=== PATIENT | female | born 1980 | race African-American/Black ===

== ENCOUNTER 2016-09-15 20:57 | Observation (INO) | payer OTHER ==
[~2016-09-15] VITALS: Ht 149.9 cm; Wt 40.0 kg
[~2016-09-15 20:57] MED LIST: CIPR500T4 PO; FLAG500T PO; NAPR-576 PO; PERC5TAB12 PO; PROT40TA PO; TRAM50 PO; ZOFR4TAB3 SL
[2016-09-15 21:00] VITALS: BP 128/81; PULSE 98; RESP 10; RESP 15; TEMP 98; O2SAT 97
[2016-09-15] MEDS ORDERED: SODIUM CHLOR 0.9% 1000 ML INJ 1,000 ML IV SCH (23:04)
--- NOTE | 2016-09-15 23:07 | PD ---
HPI Chief Complaint: Facial Pain or Swelling Time Seen by Provider: 23:01 Travel History International Travel<30 days: No Contact w/Intl Traveler<30days: No Traveled to known affect area: No History of Present Illness HPI 36-year-old female here for evaluation of severe left-sided jaw pain. Patient reports that the pain started 3 days ago and has been progressively getting worse. She is unable to open or close her mouth and states that she has had little to eat or drink in the last 3 days because of this. She denies trauma. No fevers or chills. She is able to swallow and tolerate her secretions. She denies IVDU. PFSH Past Medical History Autoimmune Disease: No Blood Disorders: No Anxiety: No Depression: No Cancer: No Cardiovascular Problems: No Chemotherapy: No Diabetes: No Diminished Hearing: No Endocrine: No Gastrointestinal Disorders: Yes (CHRONIC ABD PAIN) Genitourinary: No Hepatitis: No Hypertension: Yes Immune Disorder: No Implanted Vascular Access Dvce: No Musculoskeletal: No Neurologic: No Psychiatric: No Reproductive: Yes (HEAVY VAG BLEEDING AND CRAMPING WITH HER PERIOD) Respiratory: No Immunizations Current: Yes Radiation Therapy: No Thyroid Disease: No ?: Not LMP: 09/04/16 : 1 Para: 1 Miscarriage: 0 : 0 Past Surgical History Abdominal Surgery: No AICD: No Arteriovenous Shunt: No Cardiac Surgery: No Section: Yes (X1) Ear Surgery: No Endocrine Surgery: No Eye Surgery: No Genitourinary Surgery: No Gynecologic Surgery: No Insulin Pump: No Joint Replacement: No Neurologic Surgery: No Oral Surgery: No Pacemaker: No Thoracic Surgery: No Other Surgery: No Social History Alcohol Use: No Tobacco Use: Yes (1 PPD) Substance Use: Yes (marijuana) Allergies-Medications (Allergen,Severity, Reaction): Coded Allergies: No Known Allergies (Verified , 09/15/16) Reported Meds & Prescriptions Reported Meds & Active Scripts Active No Active Prescriptions or Reported Medications Review of Systems Except as stated in HPI: all other systems reviewed are Neg Physical Exam Narrative GENERAL: Well-developed, well-nourished, awake, alert, no acute distress. SKIN: Focused skin assessment warm/dry. No rash. HEAD: Normocephalic. Moderate left-sided facial swelling with induration. Mild left submandibular swelling. EYES: Pupils equal and round. No scleral icterus. No injection or drainage. ENT: No nasal bleeding or discharge. Mucous membranes pink and moist. One finger trismus. Because of this it is difficult to completely examine the patient's mouth. NECK: Trachea midline. No JVD. No nuchal rigidity. CARDIOVASCULAR: Regular rate and rhythm. RESPIRATORY: No accessory muscle use. Clear to auscultation. Breath sounds equal bilaterally. GASTROINTESTINAL: Abdomen soft, non-tender, nondistended. MUSCULOSKELETAL: No obvious deformities. No clubbing. No cyanosis. No edema. NEUROLOGICAL: Awake and alert. No obvious cranial nerve deficits. Motor grossly within normal limits. Normal speech. PSYCHIATRIC: Appropriate mood and affect; insight and judgment normal. Data Data Last Documented VS Vital Signs Date Time Temp Pulse Resp B/P Pulse Ox O2 Delivery O2 Flow Rate FiO2 09/15/16 23:20 98 Room Air 09/15/16 21:00 98.0 98 15 128/81 Orders Complete Blood Count With Diff (09/15/16 23:04) Comprehensive Metabolic Panel (09/15/16 23:04) Prothrombin Time / Inr (Pt) (09/15/16 23:04) Act Partial Throm Time (Ptt) (09/15/16 23:04) Iv Access Insert/Monitor (09/15/16 23:04) Ecg Monitoring (09/15/16 23:04) Oximetry (09/15/16 23:04) Morphine Inj (Morphine Inj) (09/15/16 23:15) Ondansetron Inj (Zofran Inj) (09/15/16 23:15) Sodium Chlor 0.9% 1000 Ml Inj (Ns 1000 M (09/15/16 23:04) Sodium Chloride 0.9% Flush (Ns Flush) (09/15/16 23:15) Beta Hcg (Quant/Titer) (09/15/16 23:04) Ampicillin-Sulbactam Inj (Unasyn Inj) (09/15/16 23:15) Ct Facial Bones W Iv Contrast (09/16/16 ) Iohexol 350 Inj (Omnipaque 350 Inj) (09/16/16 01:04) Morphine Inj (Morphine Inj) (09/16/16 01:45) Ondansetron Inj (Zofran Inj) (09/16/16 01:45) Ketorolac Inj (Toradol Inj) (09/16/16 02:00) Clindamycin Inj (Cleocin Inj) (09/16/16 02:00) Labs Laboratory Tests Test 09/15/16 23:25 White Blood Count 11.4 TH/MM3 Red Blood Count 4.24 MIL/MM3 Hemoglobin 12.3 GM/DL Hematocrit 37.3 % Mean Corpuscular Volume 87.9 FL Mean Corpuscular Hemoglobin 29.0 PG Mean Corpuscular Hemoglobin 33.0 % Concent Red Cell Distribution Width 14.1 % Platelet Count 209 TH/MM3 Mean Platelet Volume 8.7 FL Neutrophils (%) (Auto) 89.3 % Lymphocytes (%) (Auto) 5.6 % Monocytes (%) (Auto) 4.9 % Eosinophils (%) (Auto) 0.0 % Basophils (%) (Auto) 0.2 % Neutrophils # (Auto) 10.1 TH/MM3 Lymphocytes # (Auto) 0.6 TH/MM3 Monocytes # (Auto) 0.6 TH/MM3 Eosinophils # (Auto) 0.0 TH/MM3 Basophils # (Auto) 0.0 TH/MM3 CBC Comment DIFF FINAL Differential Comment Prothrombin Time 11.1 SEC Prothromb Time International 1.0 RATIO Ratio Activated Partial 29.2 SEC Thromboplast Time Sodium Level 140 MEQ/L Potassium Level 3.3 MEQ/L Chloride Level 103 MEQ/L Carbon Dioxide Level 26.3 MEQ/L Anion Gap 11 MEQ/L Blood Urea Nitrogen 8 MG/DL Creatinine 0.82 MG/DL Estimat Glomerular Filtration 97 ML/MIN Rate Random Glucose 103 MG/DL Calcium Level 9.6 MG/DL Total Bilirubin 0.5 MG/DL Aspartate Amino Transf 12 U/L (AST/SGOT) Alanine Aminotransferase 18 U/L (ALT/SGPT) Alkaline Phosphatase 73 U/L Total Protein 8.4 GM/DL Albumin 3.9 GM/DL Human Chorionic Gonadotropin, LESS THAN 1 Quant MIU/ML MDM Medical Decision Making Medical Screen Exam Complete: Yes Emergency Medical Condition: Yes Medical Record Reviewed: Yes Differential Diagnosis Dental abscess, Cristian angina, Narrative Course Initial vital signs show heart rate 98, blood pressure 128/81, pulse ox 97% on room air, oral temp of 98F. CBC shows WBC 11.4, hemoglobin 12.3, hematocrit 37.3, platelets 209, neutrophils 89.3%. CMP is remarkable for potassium 3.3, otherwise unremarkable. Beta hCG is negative. CT facial bones with contrast: CONCLUSION: 1. Periapical abscess of the left molar of the left mandible with adjacent small fluid collection/abscess measuring 2.1 x 1.1 cm. Patient has one finger trismus on the barely being able to open or close her mouth because of the pain. There is no drooling or stridor. She is able to tolerate her secretions. She is still complaining of pain despite receiving 2 doses of pain medication. She also reports that she has had little to eat or drink because she is unable to open her mouth because of the pain. Because of this she'll be admitted for IV antibiotics and OMFS evaluation. Case discussed with on-call OMFS Dr. Rush who agrees with plan for admission for IV antibiotics. He will see the patient in consultation. Case discussed with hospitalist Dr. Salgado who will admit the patient to her service. Diagnosis Primary Impression: Dental abscess Additional Impression: Pain, dental Admitting Information Admitting Physician Requests: Observation Scripts No Active Prescriptions or Reported Meds Kurt Pierce MD Sep 15, 2016 23:07
[2016-09-15] MEDS ORDERED: MORPHINE SULFATE 4 MG/ML INJ IV PUSH ONE (23:15)
[2016-09-15] MEDS ORDERED: ONDANSETRON HCL 4 MG/2 ML VIAL IVP ONE (23:15)
[2016-09-15] MEDS ORDERED: AMPICILLIN-SULBACTAM INJ 3 GM in SODIUM CHLORIDE 0.9% INJ 100 ML IV ONE (23:15)
[2016-09-15] MEDS ORDERED: SODIUM CHLORIDE 0.9% FLUSH 10 ML FLUSH IV FLUSH PRN (23:15)
[2016-09-15 23:20] VITALS: O2SAT 98
[2016-09-15 23:40] LABS: AUTOMATED NEUTROPHIL # 10.1 TH/MM3 (1.8-7.7); BASOPHIL % 0.2 % (0.0-2.0); HEMATOCRIT 37.3 % (35.0-46.0); HEMO FLAGS DIFF FINAL; LYMPH % 5.6 % (9.0-44.0); LYMPHOCYTE # 0.6 TH/MM3 (1.0-4.8); MEAN CELL VOLUME 87.9 FL (80.0-100.0); MONO % 4.9 % (0.0-8.0); NEUT % 89.3 % (16.0-70.0); PLATELET COUNT 209 TH/MM3 (150-450); RED BLOOD COUNT 4.24 MIL/MM3 (4.00-5.30); RED CELL DISTRIBUTION WIDTH 14.1 % (11.6-17.2); WHITE BLOOD COUNT 11.4 TH/MM3 (4.0-11.0)
[2016-09-15 23:47] LABS: APTT (PATIENT) 29.2 SEC (24.3-30.1); PROTHROMBIN TIME - PATIENT 11.1 SEC (9.8-11.6)
[2016-09-16] VITALS (9 sets, daily range): BP systolic 87–119; BP diastolic 60–80; PULSE 63–99; RESP 18–20; TEMP 96.6–98.7; O2SAT 97–99
[2016-09-16 00:03] LABS: ALT (GPT) 18 U/L (10-53); ANION GAP 11 MEQ/L (5-15); AST (GOT) 12 U/L (15-37); BICARBONATE 26.3 MEQ/L (21.0-32.0); BLOOD UREA NITROGEN 8 MG/DL (7-18); CHLORIDE 103 MEQ/L (98-107); GLOMERULAR FILTRATION RATE 97 ML/MIN (>89); POTASSIUM 3.3 MEQ/L (3.5-5.1); SODIUM (NA) 140 MEQ/L (136-145)
[2016-09-16 00:07] LABS: ALKALINE PHOSPHATASE 73 U/L (45-117); BETA HCG QUANT LESS THAN 1 MIU/ML (0-5); TOTAL BILIRUBIN ADULT 0.5 MG/DL (0.2-1.0)
[2016-09-16] MEDS ORDERED: IOHEXOL 350 MG/ML 10 ML VIAL (for RAD DIAG) IV ONE (01:04)
--- NOTE | 2016-09-16 01:41 | RADRPT ---
EXAM DATE/TIME: 09/16/2016 01:00 [facility] COMPARISON: No previous studies available for comparison. INDICATIONS : Left mandible pain and swelling for three days. IV CONTRAST: 72 cc Omnipaque 350 (iohexol) IV RADIATION DOSE: 29.26 CTDIvol (mGy) MEDICAL HISTORY : Hypertension. SURGICAL HISTORY : section. ENCOUNTER: Initial ACUITY: 3 days PAIN SCALE: 10/10 LOCATION: Left facial TECHNIQUE: Volumetric scanning of the facial bones was performed. Using automated exposure control and adjustme nt of the mA and/or kV according to patient size, radiation dose was kept as low as reasonably achiev able to obtain optimal diagnostic quality images. FINDINGS: ORBITS: The orbital and infraorbital osseous structures are intact. The retroconal structures have a normal configuration. No radiopaque foreign bodies are seen. NASAL BONE: The nasal bone and maxillary spine are intact ZYGOMATIC ARCHES: Symmetric without evidence of fracture. SINUSES: The maxillary, ethmoid and frontal sinuses are intact. No air-fluid levels seen. NASAL CAVITY: The nasal septum is intact and midline. The lacrimal ducts are intact. SOFT TISSUES: No radiopaque foreign bodies seen. Left-sided facial soft-tissue swelling is seen. There is a small a bscess in the soft tissues adjacent to the left mandible measuring 2.1 x 1.1 cm. This appears to be c aused by periapical abscess from adjacent molar. INTRACRANIAL: No intracranial air seen. CRIBIFORM PLATE: Grossly intact. CONCLUSION: 1. Periapical abscess of the left molar of the left mandible with adjacent small fluid collection/abs cess measuring 2.1 x 1.1 cm. Satnam Meza MD on September 16, 2016 at 1:34 Board Certified Radiologist. This report was verified electronically.
[2016-09-16] MEDS ORDERED: MORPHINE SULFATE 4 MG/ML INJ IV PUSH ONE (01:45)
[2016-09-16] MEDS ORDERED: ONDANSETRON HCL 4 MG/2 ML VIAL IV PUSH ONE ×2 (01:45→12:00)
[2016-09-16] MEDS ORDERED: CLINDAMYCIN INJ 600 MG in SODIUM CHLORIDE 0.9% INJ 100 ML IV ONE (02:00)
[2016-09-16] MEDS ORDERED: KETOROLAC TROMETHAMINE 30 MG/ML (IVP) VIAL IV PUSH ONE (02:00)
[2016-09-16] MEDS ORDERED: NALOXONE HCL 0.4 MG/ML AMP IV PRN (02:30)
[2016-09-16] MEDS ORDERED: ONDANSETRON HCL 4 MG/2 ML VIAL IVP PRN (02:30)
[2016-09-16] MEDS ORDERED: HYDROmorphone HCL PF 1 MG/ML VIAL IV PUSH PRN (02:45)
[2016-09-16] MEDS: SODIUM CHLOR 0.9% 1000 ML INJ 1,000 ML IV SCH ×5 (02:55→22:30)
[2016-09-16] MEDS ORDERED: POTASSIUM CHLORIDE 20 MEQ CONTROLLED RELEASE TAB PO ONE (08:00)
[2016-09-16] MEDS: CLINDAMYCIN INJ 900 MG in SODIUM CHLORIDE 0.9% INJ 100 ML IV SCH ×3 (08:11→21:40)
--- NOTE | 2016-09-16 08:16 | MB ---
cc: JIN LIZ DDS DATE OF CONSULTATION 09/16/2016 DATE OF 1980 CHIEF COMPLAINT "My face is swollen and my teeth hurt." HISTORY OF PRESENT ILLNESS Ms. Rosario is a 36-year-old female who presented to the [place] emergency department with severe left sided jaw pain. The patient states that her pain started approximately three days ago and has been getting progressively worse. The patient states that she has not had trouble with any teeth prior to this recent occurrence, however at this time, she states that she is unable to open her mouth and she has had little to eat or drink in the last three days. The patient denies any trauma. The patient denies any fever, chills, nausea or vomiting. The patient was seen this morning in bed complaining of left sided jaw pain. The patient is alert and oriented x3 and the patient had a friend at bedside. PAST MEDICAL HISTORY The patient is significant for: 1. Chronic abdominal pain 2. Heavy vaginal bleeding PAST SURGICAL HISTORY SOCIAL HISTORY Denies any alcohol use. She smokes approximately one pack per day and is positive for marijuana use. ALLERGIES NO KNOWN DRUG ALLERGIES. PHYSICAL EXAMINATION GENERAL: This is a well-developed, well-nourished female awake and alert in no acute distress. SKIN: Warm and dry with no rashes. HEAD: Normocephalic and atraumatic. EYES: Pupils equal, round and reactive to light and accommodation. Extraocular muscles are intact. No scleral icterus. NOSE: No nasal bleeding or discharge. EARS: Her hearing is intact. MAXILLOFACIAL: The patient is noted to have moderate left-sided facial swelling on the lower third of the face. Maximal incisal opening is approximately 15 mm which is approximately the width of one fingerbreadth. The patient is noted to have some vestibular swelling associated with what appears to be tooth #18 and impacted tooth number 17. The floor of the mouth is not swollen and her airway is patent. Oral hygiene is fair. NECK: Trachea is midline with no JVD. A maxillofacial CT was completed and the conclusion report states that the patient has a periapical abscess of the left molar of the left mandible with adjacent small fluid collection abscess measuring approximately 2.1 x 1.1 cm. ASSESSMENT This is a 36-year-old female with a multi-fascial space infection (masseter space and buccal abscess) secondary to tooth #17. PLAN The patient is to be kept n.p.o. after breakfast for approximately eight hours. The patient is then going to be taken to the operating room for incision and drainage of multiple fascial space abscess with extraction of any necessary teeth. Recommend clindamycin 900 mg every 8 hours, pain management and steroid therapy. JEB Lambert/JOYCE /7:38 AM /8:08 AM
--- NOTE | 2016-09-16 08:18 | HHI.HP ---
. HPI Service [facility] Primary Care Physician No Primary Care Physician Admission Diagnosis dental abscess, dental pain Diagnoses: (1) Dental abscess Chief Complaint: Left sided jaw pain x 3 days Travel History International Travel<30 Days: No Contact w/Intl Traveler <30 Da: No Traveled to Known Affected Are: No History of Present Illness Ms. Rosario is a 36-year-old female who presented to the ED with complaints of severe left sided jaw pain for the past three days, unsure of what caused the pain to occur. Denies any associated fever and chills. Denies any inability to swallow, although has had limited amount of PO intake the last three days due to inability to open mouth. Denies any radiation of pain, only localized to left jaw. On a pain scale of 1-10, patient states that her pain has been a 10. Patient states that sister had given her a Lortab which had made her vomit and left without any pain relief. At one point she used a heating pad, making it worse. Maxillofacial CT resulted showing periapical abscess of the left molar of the left mandible with adjacent small fluid collection/abscess measuring 2.1x1.1cm. Review of Systems Except as stated in HPI: all other systems reviewed are Neg Past Family Social History Past Medical History Hypertension Chronic abdominal pain Heavy vaginal bleeding Past Surgical History , Reported Medications Reported Meds & Active Scripts Active No Active Prescriptions or Reported Medications Allergies: Coded Allergies: No Known Allergies (Unverified , 09/16/16) Active Ordered Medications Current Medications Medications (Trade) Dose Ordered Sig/Edna Route Start Time Stop Time Status Last Admin (NS 1000 ml Inj) 1,000 ml @ 100 mls/hr Q10H IV 09/16/16 02:30 09/16/16 02:55 (NS Flush) 2 ml UNSCH PRN IV FLUSH 09/16/16 02:30 (NS Flush) 2 ml BID IV FLUSH 09/16/16 09:00 (Zofran Inj) 4 mg Q6H PRN IVP 09/16/16 02:30 Naloxone HCl 0.4 mg 0.4 mg UNSCH PRN IV 09/16/16 02:30 (Cleocin Inj/NS Inj) 106 ml @ 212 mls/hr Q6H IV 09/16/16 08:00 09/16/16 08:11 (Dilaudid Pf Inj) 0.5 mg Q4H PRN IV PUSH 09/16/16 02:45 09/16/16 07:21 (SoluMEDROL INJ) 40 mg Q8HR IV PUSH 09/16/16 07:45 UNV (KCl) 20 meq ONCE ONCE PO 09/16/16 08:00 09/16/16 08:01 UNV Family History Patient denies any significant family history of cardiovascular disease or dental problems. Social History Patient admits to smoking one pack per day. Denies any alcohol use. Denies any illicit drug use. Physical Exam Vital Signs Vital Signs Date Time Temp Pulse Resp B/P Pulse Ox O2 Delivery O2 Flow Rate FiO2 09/16/16 07:32 98.1 67 20 102/61 99 09/16/16 05:02 97.6 88 18 92/60 98 09/16/16 04:12 85 18 90/70 99 Room Air 09/16/16 02:13 98.7 99 20 119/78 98 Room Air 09/15/16 23:20 98 Room Air 09/15/16 21:00 98.0 98 15 128/81 97 Physical Exam GENERAL: Well-nourished, well-developed patient, with continued complaint of left jaw pain. SKIN: Warm and dry. No rash. HEENT: Normocephalic. Atraumatic, Pupils equal and round. No scleral icterus. No injection or drainage. No nasal bleeding or discharge. Patient unable to open mouth very wide, limited assessment. Left cheek and neck swollen and tender to touch. NECK: Supple. Trachea midline. CARDIOVASCULAR: Regular rate and rhythm. S1, S2 noted. No murmur appreciated. RESPIRATORY: No accessory muscle use. Clear to auscultation. Breath sounds equal bilaterally. GASTROINTESTINAL: Abdomen soft, non-tender, nondistended. Normoactive bowel sounds x4. MUSCULOSKELETAL: No obvious deformities. Extremities without clubbing, cyanosis , or edema. NEUROLOGICAL: Awake and alert. No obvious cranial nerve deficits. Motor grossly within normal limits. 5/5 muscle strength in bilateral upper and lower extremities. Normal speech. PSYCHIATRIC: Appropriate mood and affect; insight and judgment normal. Laboratory Laboratory Tests Test 09/15/16 23:25 White Blood Count 11.4 Red Blood Count 4.24 Hemoglobin 12.3 Hematocrit 37.3 Mean Corpuscular Volume 87.9 Mean Corpuscular Hemoglobin 29.0 Mean Corpuscular Hemoglobin 33.0 Concent Red Cell Distribution Width 14.1 Platelet Count 209 Mean Platelet Volume 8.7 Neutrophils (%) (Auto) 89.3 Lymphocytes (%) (Auto) 5.6 Monocytes (%) (Auto) 4.9 Eosinophils (%) (Auto) 0.0 Basophils (%) (Auto) 0.2 Neutrophils # (Auto) 10.1 Lymphocytes # (Auto) 0.6 Monocytes # (Auto) 0.6 Eosinophils # (Auto) 0.0 Basophils # (Auto) 0.0 CBC Comment DIFF FINAL Differential Comment Prothrombin Time 11.1 Prothromb Time International 1.0 Ratio Activated Partial 29.2 Thromboplast Time Sodium Level 140 Potassium Level 3.3 Chloride Level 103 Carbon Dioxide Level 26.3 Anion Gap 11 Blood Urea Nitrogen 8 Creatinine 0.82 Estimat Glomerular Filtration 97 Rate Random Glucose 103 Calcium Level 9.6 Total Bilirubin 0.5 Aspartate Amino Transf 12 (AST/SGOT) Alanine Aminotransferase 18 (ALT/SGPT) Alkaline Phosphatase 73 Total Protein 8.4 Albumin 3.9 Human Chorionic Gonadotropin, LESS THAN 1 Quant Result Diagram: 09/15/16 2325 09/15/16 2325 Imaging Last Impressions Maxillofacial CT 09/16/16 0000 Signed Impressions: Service Date/Time: September 01:00 - CONCLUSION: 1. Periapical abscess of the left molar of the left mandible with adjacent small fluid collection/abscess measuring 2.1 x 1.1 cm. Satnam Meza MD Assessment and Plan Assessment and Plan Ms. Rosario is a 36-year-old female who presented to the ED with complaints of severe left sided jaw pain for the past three days. Max[address]of[address] resulted showing periapical abscess of the left molar of the left mandible with adjacent small fluid collection/abscess measuring 2.1x1.1cm. Periapical abscess of the left molar of the left mandible -Maxillofacial CT report reviewed, showing periapical abscess of the left molar of the left mandible with adjacent small fluid collection/abscess measuring 2.1x1.1cm. -Consult orofacial surgery. I & D of multiple fascial space abbesses scheduled today at 1700. -Unasyn 3g IV x 1 in ED. Continue clindamycin 900 mg PO q8h. -Methylprednisone 40 mg IV every 8 hours -Pain control. Morphine 4mg IV q4h PRN breakthrough pain/while NPO -Ice pack PRN -WBC 11.4K, recheck CBC in a.m. Hypokalemia -Potassium chloride 20 meq IV 1. -Recheck BMP in a.m. Tobacco use -Nicotine patch when necessary -Encourage cessation DVT prophylaxis: SCDs Written by Yeison Nielsen, acting as scribe for Dr. Castillo on 09/16/16 at 15: 56. This note was transcribed by scribe yeison nielsen. I, Dr. Darleen Castillo personally performed the history, physical exam, and medical decision making; and confirmed the accuracy of the information in the transcribed note. Authenticated by Dr. Darleen Castillo on 09/16/16 at 20:28. Discussed Condition With Patient Yeison Nielsen Sep 16, 2016 08:18 Yeison Nielsen Sep 16, 2016 15:31 Darleen Castillo MD Sep 16, 2016 20:30
[2016-09-16] MEDS ORDERED: ACETAMINOPHEN 325 MG TAB PO PRN (08:30)
[2016-09-16] MEDS ORDERED: ACETAMINOPHEN/HYDROcodone 325 MG/5 MG TAB PO PRN (08:30)
[2016-09-16] MEDS ORDERED: SODIUM CHLORIDE 0.9% FLUSH 10 ML FLUSH IV FLUSH SCH ×2 (09:00→21:00)
[2016-09-16] MEDS: methylPREDNISolone SOD SUCC 40 MG/1 ML VIAL IV PUSH SCH ×2 (09:37→21:22)
[2016-09-16] MEDS: MORPHINE SULFATE 4 MG/ML INJ IV PUSH PRN ×3 (09:41→22:53)
[2016-09-16] MEDS ORDERED: POTASSIUM CHLOR 20 MEQ PREMIX 100 ML IV ONE (10:45)
[2016-09-16] MEDS: SODIUM CHLORIDE 0.9% FLUSH 10 ML FLUSH IV FLUSH PRN ×2 (11:20→13:49)
[2016-09-16] MEDS ORDERED: PROPOFOL 200 MG/20 ML AMP IV ONE (12:00)
[2016-09-16] MEDS ORDERED: NICOTINE 21 MG/24 HR PATCH T-DERMAL PRN (15:30)
[2016-09-16] MEDS ORDERED: LIDOCAINE 1%/EPINEPHrine 1:100,000 SOLN 20 ML VIAL ONE ×2 (15:52→15:59)
[2016-09-16] MEDS ORDERED: LIDOCAINE 0.5%/EPINEPHrine 1:200,000 SOLN 50 ML VIAL ONE (15:53)
[2016-09-16] MEDS ORDERED: MICROFIBRILLAR COLLAGEN HEMOSTAT 1 GM PKT ONE (15:53)
[2016-09-16] MEDS ORDERED: CHLORHEXIDINE GLUCONATE 0.12% 30 ML CUP ONE (15:54)
[2016-09-16] MEDS ORDERED: FAMOTIDINE 20 MG/2 ML VIAL ONE (17:06)
[2016-09-16] MEDS ORDERED: fentaNYL CITRATE 250 MCG/5 ML AMP ONE (17:06)
[2016-09-16] MEDS ORDERED: MIDAZOLAM HCL 2 MG/2 ML VIAL ONE (17:07)
[2016-09-16] MEDS ORDERED: BUPIVACAINE/EPINEPHRINE 0.25% PF 30 ML VIAL ONE (17:34)
[2016-09-16] MEDS ORDERED: *MEPERIDINE 25 MG INJ VIAL PERIprocedural Use ONLY ONE (18:24)
[2016-09-16] MEDS ORDERED: HYDROmorphone HCL PF 1 MG/ML VIAL IV PRN (18:30)
[2016-09-16] MEDS ORDERED: DO NOT ADM ANY ANTICOAGULANT DRUGS PRN (18:30)
[2016-09-16] MEDS ORDERED: KETOROLAC TROMETHAMINE 30 MG/ML (IVP) VIAL IVP PRN (18:30)
[2016-09-16] MEDS ORDERED: SODIUM CHLORIDE 0.9% FLUSH 10 ML FLUSH IV FLUSH PRN (18:30)
[2016-09-16] MEDS ORDERED: *morphine SULFATE 8 MG/ML PERIprocedure ONLY ONE ×2 (18:39→18:49)
[2016-09-16] MEDS ORDERED: *RESP: ALBUTEROL 2.5 MG/3 ML NEB (PRN) PERIprocedural Use ONLY NEB ONE (18:41)
[2016-09-17] VITALS: BP 112/69; PULSE 74; RESP 18; TEMP 97.4; O2SAT 98
[2016-09-17] MEDS: CLINDAMYCIN INJ 900 MG in SODIUM CHLORIDE 0.9% INJ 100 ML IV SCH ×2 (02:55→08:14)
[2016-09-17] MEDS: methylPREDNISolone SOD SUCC 40 MG/1 ML VIAL IV PUSH SCH ×2 (02:55→08:16)
[2016-09-17] MEDS: MORPHINE SULFATE 4 MG/ML INJ IV PUSH PRN ×2 (02:56→08:15)
[2016-09-17 04:00] VITALS: BP 94/58; PULSE 68; RESP 18; TEMP 97.7; O2SAT 100
[2016-09-17 08:00] VITALS: BP 116/83; PULSE 80; RESP 20; TEMP 97.4; O2SAT 99
[2016-09-17 08:37] LABS: AUTOMATED NEUTROPHIL # 11.7 TH/MM3 (1.8-7.7); BASOPHIL % 0.1 % (0.0-2.0); HEMATOCRIT 34.1 % (35.0-46.0); HEMO FLAGS DIFF FINAL; LYMPHOCYTE # 0.4 TH/MM3 (1.0-4.8); MEAN CELL VOLUME 88.7 FL (80.0-100.0); MEAN CORPUSCULAR HEMOGLOBIN 28.3 PG (27.0-34.0); MEAN CORPUSCULAR HGB CONC 31.9 % (32.0-36.0); MONO % 3.9 % (0.0-8.0); PLATELET COUNT 195 TH/MM3 (150-450); RED BLOOD COUNT 3.85 MIL/MM3 (4.00-5.30); WHITE BLOOD COUNT 12.6 TH/MM3 (4.0-11.0)
[2016-09-17 09:01] LABS: BICARBONATE 25.2 MEQ/L (21.0-32.0); POTASSIUM 3.8 MEQ/L (3.5-5.1)
--- NOTE | 2016-09-17 09:06 | HHI.PR ---
Subjective Remarks POD #1 for this 36 yo s/p incision and drainage with extraction of teeth #17 and 18. Pt was seen this resting comfortable in bed in no acute distress. Pt states she feels better as compared to pre-op. Denies nausea, vomiting and fever. Vitals stable. Objective Vital Signs Date Time Temp Pulse Resp B/P Pulse Ox O2 Delivery O2 Flow Rate FiO2 09/17/16 04:00 97.7 68 18 94/58 100 09/17/16 00:00 97.4 74 18 112/69 98 09/16/16 21:16 99 21 09/16/16 21:00 96.6 75 20 116/80 97 09/16/16 19:54 99.1 91 20 119/84 100 Nasal Cannula 2 09/16/16 19:15 95 20 136/85 99 Nasal Cannula 2 09/16/16 19:00 85 20 142/92 100 Nasal Cannula 2 09/16/16 18:45 82 20 139/97 100 Nasal Cannula 2 09/16/16 18:30 88 20 145/100 100 Nasal Cannula 3 09/16/16 18:22 97.8 114 20 164/86 95 Nasal Cannula 3 09/16/16 14:10 63 20 106/74 99 09/16/16 11:34 96.9 68 18 87/60 99 I/O 09/16/16 09/16/16 09/16/16 09/17/16 09/17/16 09/17/16 07:00 15:00 23:00 07:00 15:00 23:00 Intake Total 600 ml 810 ml 220 ml Output Total 5 ml Balance 600 ml 805 ml 220 ml Intake Oral 100 ml 10 ml 220 ml IV Total 500 ml 500 ml Other 300 ml Output Estimated Blood Loss 5 ml # Voids 2 2 3 # Bowel Movements 0 0 Result Diagram: 09/17/16 0816 09/15/16 2325 Imaging Last Impressions Maxillofacial CT 09/16/16 0000 Signed Impressions: Service Date/Time: September 01:00 - CONCLUSION: 1. Periapical abscess of the left molar of the left mandible with adjacent small fluid collection/abscess measuring 2.1 x 1.1 cm. Satnam Meza MD Procedures I&D of left muti-fascial space infection with extraction of teeth # 17 and 18 Objective Remarks Facial swelling reduced as compared to pre-op. CRISTIANA improved at 25 mm. Surgical sites hemostatic. No drainage noted at extraction sites. FOM not raised Airway patent. Medications and IVs Active Medications Albuterol Sulfate (*ALBUTEROL NEB PERIprocedure ONLY) 2.5 mg STK-MED ONCE NEB Last administered on 09/16/16 18:41; Admin Dose 2.5 MG; Start 09/16/16 at 18:41 ; Stop 09/16/16 at 18:42; Status DC Bupivacaine HCl/ Epinephrine Bitart 30 ml 30 ml STK-MED ONCE .ROUTE Last administered on 09/16/16 17:51; Admin Dose 6 ML; Start 09/16/16 at 17:34; Stop 09/16/16 at 17:35; Status DC Chlorhexidine Gluconate (Peridex 0.12% Liq) 90 ml STK-MED ONCE .ROUTE Last administered on 09/16/16 17:51; Admin Dose 90 ML; Start 09/16/16 at 15:54; Stop 09/16/16 at 15:55; Status DC Famotidine (Pepcid Inj) 20 mg STK-MED ONCE .ROUTE; Start 09/16/16 at 17:06; Stop 09/16/16 at 17:07; Status DC Fentanyl Citrate (fentaNYL INJ) 250 mcg STK-MED ONCE .ROUTE; Start 09/16/16 at 17:06; Stop 09/16/16 at 17:07; Status DC Hydromorphone HCl (Dilaudid Pf Inj) 0.5 mg Q2H PRN IV Last administered on 09/16 21:24; Admin Dose 0.5 MG; Start 09/16/16 at 18:30 Ketorolac Tromethamine (Toradol Inj) 15 mg Q6H PRN IVP Last administered on 18:54; Admin Dose 15 MG; Start 09/16/16 at 18:30; Stop 09/21/16 at 18:29 Lidocaine/ Epinephrine (Xylocaine-Epi 0.5%-1:200,000 Inj) 50 ml STK-MED ONCE .ROUTE Last administered on 09/16/16 17:51; Admin Dose 7 ML; Start 09/16/16 at 15:53; Stop 09/16/16 at 15:54; Status DC Lidocaine/ Epinephrine (Xylocaine-Epi 1%-1:100,000 Inj) 20 ml STK-MED ONCE .ROUTE; Start 09/16/16 at 15:52; Stop 09/16/16 at 15:53; Status DC Lidocaine/ Epinephrine (Xylocaine-Epi 1%-1:100,000 Inj) 40 ml STK-MED ONCE .ROUTE; Start 09/16/16 at 15:59; Stop 09/16/16 at 16:00; Status DC Meperidine HCl (*DEMEROL INJ PERIprocedural ONLY) 25 mg STK-MED ONCE .ROUTE Last administered on 09/16/16 18:24; Admin Dose 25 MG; Start 09/16/16 at 18:24 ; Stop 09/16/16 at 18:25; Status DC Methylprednisolone Sodium Succinate 40 mg 40 mg Q8H IV PUSH Last administered on 09/17/16 08:16; Admin Dose 40 MG; Start 09/16/16 at 10:00 Microfibriller Collagen Hemostat (Avitene Powder Pack) 2 gm STK-MED ONCE .ROUTE ; Start 09/16/16 at 15:53; Stop 09/16/16 at 15:54; Status DC Midazolam HCl (Versed Inj) 2 mg STK-MED ONCE .ROUTE; Start 09/16/16 at 17:07; Stop 09/16/16 at 17:08; Status DC Miscellaneous Information ALL NURSING DEPARTME... UNSCH PRN .XX; Start at 18:30; Stop 09/17/16 at 18:29 Morphine Sulfate (*morphine INJ PERIprocedure ONLY) 8 mg STK-MED ONCE .ROUTE Last administered on 09/16/16 18:39; Admin Dose 5 MG; Start 09/16/16 at 18:39; Stop 09/16/16 at 18:40; Status DC Morphine Sulfate (*morphine INJ PERIprocedure ONLY) 8 mg STK-MED ONCE .ROUTE Last administered on 09/16/16 18:49; Admin Dose 5 MG; Start 09/16/16 at 18:49; Stop 09/16/16 at 18:50; Status DC Nicotine (Habitrol 21 Mg Patch.24 Hr) 1 patch DAILY PRN T-DERMAL; Start at 15:30 Potassium Chloride (KCl 20 Meq Premix Inj) 100 ml @ 50 mls/hr BOLUS ONCE IV Last administered on 09/16/16 11:21; Admin Dose 50 MLS/HR; Start 09/16/16 at 10 :45; Stop 09/16/16 at 12:44; Status DC Sodium Chloride (NS 1000 ml Inj) 1,000 ml @ 100 mls/hr Q10H IV Last administered on 09/16/16 21:23; Admin Dose 100 MLS/HR; Start 09/16/16 at 18:20 Sodium Chloride (NS Flush) 2 ml BID IV FLUSH; Start 09/16/16 at 21:00 Sodium Chloride (NS Flush) 2 ml UNSCH PRN IV FLUSH; Start 09/16/16 at 18:30 Assessment and Plan Assessment and Plan A : POD # 1 s/p incision and drainage of muti-fascial space abscess secondary to teeth #17 and 18. Teeth #17 and 18 extracted. P: Pt is cleared for discharge from [facility] service. DC with 7 days of Clindamycin 300 Mg PO DC with pains meds. (hydrocodone) Follow up with Dr. Rush in office 1 week after DC. Discussed Condition With patient and nurse Discharge Planning Today Moises Rush DDS Sep 17, 2016 09:06
[2016-09-17] MEDS ORDERED: HYDR-3516 PO (11:23)
[2016-09-17] MEDS ORDERED: CLIN1CAP6 PO (11:23)
--- NOTE | 2016-09-17 11:23 | HHI.PR ---
Subjective Remarks Pain controlled, rosa reg diet, wants to go home. Objective Vitals Vital Signs Date Time Temp Pulse Resp B/P Pulse Ox O2 Delivery O2 Flow Rate FiO2 09/17/16 08:00 97.4 80 20 116/83 99 09/17/16 04:00 97.7 68 18 94/58 100 09/17/16 00:00 97.4 74 18 112/69 98 09/16/16 21:16 99 21 09/16/16 21:00 96.6 75 20 116/80 97 09/16/16 19:54 99.1 91 20 119/84 100 Nasal Cannula 2 09/16/16 19:15 95 20 136/85 99 Nasal Cannula 2 09/16/16 19:00 85 20 142/92 100 Nasal Cannula 2 09/16/16 18:45 82 20 139/97 100 Nasal Cannula 2 09/16/16 18:30 88 20 145/100 100 Nasal Cannula 3 09/16/16 18:22 97.8 114 20 164/86 95 Nasal Cannula 3 09/16/16 14:10 63 20 106/74 99 09/16/16 11:34 96.9 68 18 87/60 99 I/O 09/16/16 09/16/16 09/16/16 09/17/16 09/17/16 09/17/16 07:00 15:00 23:00 07:00 15:00 23:00 Intake Total 600 ml 810 ml 220 ml Output Total 5 ml Balance 600 ml 805 ml 220 ml Intake Oral 100 ml 10 ml 220 ml IV Total 500 ml 500 ml Other 300 ml Output Estimated Blood Loss 5 ml # Voids 2 2 3 # Bowel Movements 0 0 Result Diagram: 09/17/16 0816 09/17/16 0816 Objective Remarks GENERAL: Well-nourished, well-developed patient. SKIN: Warm and dry. HEAD: Normocephalic. swelling along left jaw EYES: No scleral icterus. No injection or drainage. NECK: Supple, trachea midline. No JVD or lymphadenopathy. CARDIOVASCULAR: Regular rate and rhythm without murmurs, gallops, or rubs. RESPIRATORY: Breath sounds equal bilaterally. No accessory muscle use. GASTROINTESTINAL: Abdomen soft, non-tender, nondistended. EXTREMITIES: No cyanosis, or edema. NEUROLOGICAL: Awake, alert, and oriented x 3. Non-focal. A/P Problem List: (1) Dental abscess ICD Code: K04.7 Status: Acute Assessment and Plan -Dental periapical abscess, s/p surgery yesterday with Dr. Rush, rosa diet, cleared for DC home. Clindamycin, lortab. F/u with Dr. Rush within 1 week. Darleen Castillo MD Sep 17, 2016 11:23
--- NOTE | 2016-09-17 21:08 | MP ---
cc: JIN RUSH DDS DATE OF SURGERY 09/16/16 PREOPERATIVE DIAGNOSIS Left multiple fascial space infection secondary to grossly decayed teeth numbers 17 and 88 PROCEDURE Incision and drainage of multiple fascial space abscesses with extraction of teeth numbers 17 and 18. POSTOPERATIVE DIAGNOSIS Left multiple fascial space infection secondary to grossly decayed teeth numbers [address] Melchor Rush ANESTHESIA General anesthesia. ESTIMATED BLOOD LOSS Minimal COMPLICATIONS None. INDICATIONS Ms. Rosario is a 36-year-old female who presented to the [facility] emergency department complaining of worsening jaw pain over the course of 4 days. The patient states that she was unable to open her mouth and was barely eating over the course of 4 days. The patient was seen and examined and with a facial CT it was determined that the patient had a multiple fascial space abscesses secondary to grossly decayed teeth numbers 18 and 17. The procedure that needed to be done was explained to the patient which included an incision and drainage of multiple fascial space infections with extraction of teeth #17 and 18. The informed consent was obtained from the patient and all risks, benefits and complications of the treatment, nontreatment and alternative treatments were discussed in depth with the patient. The risks include but are not limited to pain, swelling, infection, bleeding, damage to adjacent structures, root tip fracture, displacement, temporary and permanent numbness of the lower lip, teeth, tongue, chin, mucosa, jaw fracture or the need for further surgical procedure. The patient understood all risks and agreed to all procedures. All questions were answered preoperative. PROCEDURE IN DETAIL On 09/16/2016, the patient was brought to the operating room suite and placed on the operating room table in a supine position. All anesthesia monitors and pads were placed on the patient. The patient was then subsequently induced into general anesthesia via IV, medications and nasoendotracheal intubation. The patient was then prepped and draped in the usual oral and maxillofacial surgical fashion. The patient was then anesthetized with approximately 6 mL of 2% lidocaine with 1:100 epinephrine via inferior alveolar nerve block on the left side and infiltration on the lower left quadrant of the mandible. The surgeon's attention was then directed to the grossly decayed teeth of #18 and 17 and using a #15 blade a mucoperiosteal incision was made adjacent to the these teeth. At this time, it was noted approximately 25 mL of purulent material was drained. A culture swab was then placed in this material and sent for microbiology review. The site was then completely drained of purulent material and teeth numbers 18 and 17 were surgically extracted without complications. The sockets were thoroughly curetted and left to drain. Given the patient's limited mouth opening, it was decided that a Sanborn drain would now be placed at the surgical sites and the sites would drain independently. The patient was thoroughly irrigated and oral cavity was suctioned dry. The procedure was then completed. The patient was extubated and brought to the PACU in stable condition. The patient will be returned to the [facility] surgical floor for possible observation for another day and then to follow up with Dr. Rush at the [facility] office after discharge. JEB Lambert/ /6:34 PM /8:51 PM
== END 2016-09-17 12:58 | disposition home or self-care (01) ==
LOC: NEPC 20:57 → NEDA 09-16 02:32 → NEPFCDU 09-16 04:26 → N05B 09-16 18:50
PROVIDERS: ADMIT Family Medicine; ATTEND Family Medicine
DX: K04.7 Periapical abscess without sinus (principal); G89.29 Other chronic pain; R10.9 Unspecified abdominal pain; I10 Essential (primary) hypertension; E87.6 Hypokalemia; F17.200 Nicotine dependence, unspecified, uncomplicated; F12.90 Cannabis use, unspecified, uncomplicated
CPT/HCPCS: 00170; 41899; 70487; 80048; 80053; 84702; 85025; 85610; 85730; 87015; 87070; 87102; 87116; 87185; 87205; 87206; 96365; 96375; 96376; 99284; G0378; J0295; J1170; J1885; J2175; J2250; J2270; J2405; J2920; J3010; J3480; J7030; J7613; Q9967; 94640